=== PATIENT | female | born 1960 | race Caucasian/White ===

== ENCOUNTER 2018-04-16 13:35 | Outpatient (CLI) | payer BC ==
--- NOTE | 2018-04-16 14:26 | MMO ---
BILATERAL MAMMOGRAMS: DATE: 04/16/18 HISTORY: Screening mammography. COMPARISON: Multiple exams back to 08/05/10. FINDINGS: Scattered fibroglandular densities. Benign subglandular implants. No dominant mass or suspicious calc ifications. The study was evaluated with the assistance of computer-aided detection. IMPRESSION: BIRADS 2: Benign Finding(s) Suggest routine follow-up. POS: EDMAR
== END 2018-04-16 13:36 | disposition home or self-care (01) ==
LOC: SCSMAMMO 13:35
PROVIDERS: ATTEND Obstetrics & Gynecology
DX: Z12.31 Encounter for screening mammogram for malignant neoplasm of breast (principal)
CPT/HCPCS: 77067

== ENCOUNTER 2019-08-01 12:40 | Outpatient (CLI) | payer BC ==
--- NOTE | 2019-08-01 12:55 | RAD ---
EXAM: Chest PA and lateral: HISTORY: Dyspnea COMPARISON: 07/19/2014 FINDINGS: Heart size:Within normal limits. Lungs:Clear of acute process. No confluent pneumonia, overt edema, pleural effusion, or other acute process. IMPRESSION: No significant acute intrathoracic disease.
== END 2019-08-01 12:41 | disposition home or self-care (01) ==
LOC: RAD 12:40
PROVIDERS: ATTEND Internal Medicine Critical Care Medicine
DX: R06.00 Dyspnea, unspecified (principal)
CPT/HCPCS: 71046

== ENCOUNTER 2021-05-09 11:45 | Outpatient (CLI) | payer BC | END 2021-05-09 11:46 | disposition home or self-care (01) | LOC: RAD 11:45 | PROVIDERS: ATTEND Internal Medicine | DX: R06.00 Dyspnea, unspecified (principal) | CPT/HCPCS: 71046 ==

== ENCOUNTER 2021-06-06 13:52 | Outpatient (CLI) | payer OTHER | END 2021-06-06 13:53 | disposition home or self-care (01) | LOC: RAD 13:52 | PROVIDERS: ATTEND Internal Medicine Critical Care Medicine | DX: R06.00 Dyspnea, unspecified (principal) | CPT/HCPCS: 71046 ==

== ENCOUNTER 2021-10-14 07:42 | Outpatient (CLI) | payer OTHER | END 2021-10-14 07:43 | disposition home or self-care (01) | LOC: BICMAMMO 07:42 | PROVIDERS: ATTEND Student in an Organized Health Care Education/Training Program | DX: Z13.820 Encounter for screening for osteoporosis (principal); M85.851 Other specified disorders of bone density and structure, right thigh; M85.852 Other specified disorders of bone density and structure, left thigh | CPT/HCPCS: 77080 ==

== ENCOUNTER 2022-05-28 13:27 | Outpatient (CLI) | payer OTHER | END 2022-05-28 13:28 | disposition home or self-care (01) | LOC: RAD 13:27 | PROVIDERS: ATTEND Family Medicine | DX: R06.00 Dyspnea, unspecified (principal) | CPT/HCPCS: 71046 ==

== ENCOUNTER 2022-06-03 14:35 | Outpatient (CLI) | payer OTHER | END 2022-06-03 14:36 | disposition home or self-care (01) | LOC: RAD 14:35 | PROVIDERS: ATTEND Family Medicine | DX: R06.00 Dyspnea, unspecified (principal); J98.4 Other disorders of lung | CPT/HCPCS: 71046 ==

== ENCOUNTER 2022-07-10 11:11 | Outpatient (CLI) | payer OTHER | END 2022-07-10 11:12 | disposition home or self-care (01) | LOC: RAD 11:11 | PROVIDERS: ATTEND Internal Medicine Critical Care Medicine | DX: R06.00 Dyspnea, unspecified (principal); J98.4 Other disorders of lung | CPT/HCPCS: 71046 ==

== ENCOUNTER 2023-08-13 14:40 | Outpatient (CLI) | payer OTHER | END 2023-08-13 14:41 | disposition home or self-care (01) | LOC: RAD 14:40 | PROVIDERS: ATTEND Internal Medicine Critical Care Medicine | DX: R06.00 Dyspnea, unspecified (principal); J98.4 Other disorders of lung; R91.8 Other nonspecific abnormal finding of lung field | CPT/HCPCS: 71046 ==